=== PATIENT | female | born 1955 | race Caucasian/White ===

== ENCOUNTER 2017-08-27 07:57 | Day surgery (SDC) | payer BC ==
[2017-08-23 11:52] VITALS: BMI 28.3
[2017-08-27] MEDS ORDERED: LIDOCAINE HCL/PF 2% SDV 5ML VIAL ONE (08:05)
[2017-08-27] MEDS ORDERED: PROPOFOL 20 ML ONE ×2 (08:05)
[2017-08-27 10:33] VITALS: BP 105/60; PULSE 74; TEMP 98
== END 2017-08-27 10:20 | disposition home or self-care (01) ==
LOC: FASU-ENDO 07:57
PROVIDERS: ATTEND Internal Medicine Gastroenterology
PROC: 0DJD8ZZ Inspection of Lower Intestinal Tract, Via Natural or Artificial Opening Endoscopic (ICD-10-PCS; principal; 2017-08-27 09:12)
DX: Z12.11 Encounter for screening for malignant neoplasm of colon (principal); Z80.0 Family history of malignant neoplasm of digestive organs
CPT/HCPCS: 82962